=== PATIENT | male | born 1970 | race Caucasian/White ===

== ENCOUNTER 2024-12-01 22:07 | Inpatient (IN) | payer BC, SELFPAY ==
[2024-12-01] VITALS (11 sets, daily range): BP systolic 143–190; BP diastolic 84–122; BMI 30.8; BMI 31.8
[2024-12-01 13:57] LABS: ALT (SGPT) 27 U/L (0-50); AST (SGOT) 31 U/L (17-59); Albumin 5.0 g/dl (3.5-5.0); Alkaline Phosphatase 58 U/L (38-126); Blood Urea Nitrogen 13 mg/dl (9-20); Calcium 9.7 mg/dl (8.4-10.2); Carbon Dioxide 27 mmol/L (22-30); Chloride 100 mmol/L (98-107); Glucose 133 mg/dl (70-99); Lipase 111 U/L (23-300); Potassium 4.5 mmol/L (3.5-5.1); Sodium 138 mmol/L (135-145); Total Protein 8.6 g/dl (6.3-8.2); eGFR > 60.00
[2024-12-01 14:03] LABS: Hematocrit 52.0 % (39.0-52.0); Hemoglobin 17.7 g/dL (13.0-18.0); Mean Corp Hgb Conc. 34.0 g/dL (33.0-37.0); Mean Corpuscular Volume 89.0 fL (80.0-94.0); Platelet Count 246 10^3/uL (130-400); Red Cell Dist. Width 13.2 % (11.5-14.5)
[2024-12-01 14:29] LABS: Nucleated Red Blood Cells % 0 % (-)
--- NOTE | 2024-12-01 15:45 | ED.GENMED ---
History of Present Illness
General
Chief Complaint: Abdominal Pain
Source: patient
Exam Limitations: none
Time Seen by Provider: 12/01/24 15:41
Nursing documentation reviewed up to this point in time: agreed with
History of Present Illness
History of Present Illness:
Patient to ED with complaint of lower abd. pain radiating to upper abd. Symptoms started on monday and have gotten progressively worse. Denies fever/chills. No n/v. Last BM monday, normal. States he was seen at yesterday, given rx for zofran
but denies nausea. Brought self to ED today for eval.
Past History
Past History
ED Past Medical History: Hypercholesterolemia
ED Past Surgical History: None
Social History
Tobacco: Non-smoker
Alcohol: Occasional
Drug: None
Personal:
Living: with family
Employment: Employed
Family History
Family History: CAD; Negative Early CAD
Review of Systems
Review of Systems
Allergies reviewed?: Yes
All Other Systems: ROS reviewed and negative except as documented in HPI and ROS
Constitutional: Reports no symptoms
EENT: Reports no symptoms
Respiratory: Reports no symptoms
Cardiac: Reports no symptoms
ABD/GI: Reports abdominal pain (lower abdominal pain radiating to mid abd.)
: Reports no symptoms
Musculoskeletal: Reports no symptoms
Skin: Reports no symptoms
Neurological: Reports no symptoms
Psychiatric: Reports no symptoms
Phy Exam
General Physical Exam
General Presentation: well appearing and no apparent distress
General age: appears stated age
General Skin: warm and dry
General Habitus: normal
General Mental: alert
Cardiovascular Exam
Cardiovascular Exam: regular rate/rhythm and no edema
Gastrointestinal Exam
Gastrointestinal Exam: normal bowel sounds, soft, no organomegaly, no pulsatile mass, non distended and no cva tenderness
Palpation: left upper quadrant: Minimal tenderness, left lower quadrant: Moderate tenderness, right upper quadrant: Moderate tenderness and right lower quadrant: Mild tenderness
Musculoskeletal Exam
Musculoskeletal Exam: full ROM and neuro vasc intact
Skin Exam
Skin Exam: normal color, warm/dry and no rash
Psychiatric Exam
Psychiatric Exam: normal mood/affect
Course
Orders/Labs/Results
Orders:
Orders
12/01/24 Breakfast
NPO
Allow oral meds: Yes
Allow clear liquids: 4hrs prior to procedure
NPO with Ice Chips: Yes
Comment: may have unrestricted clear liquid up to 4 hrs prior to scheduled procedure
12/01/24 13:37
Complete Blood Count/With Diff Urgent
Comprehensive Metabolic Panel Urgent
Lipase Urgent
12/01/24 15:45
CT Abd/pelvis W Iv Cont Urgent
Comment:
Reason For Exam: mid to lower abd. pain
0.9% Sodium Chloride 1000 ml [Nss] 1,000 ml IV BOLUS
12/01/24 15:52
Urinalysis Reflex To Culture Urgent
Date Specimen was Collected: 12/01/24
Time Specimen was Collected: 15:47
Urine Microscopic Reflex Cult Urgent
Urine Culture Urgent
ABBI Source: U
Specimen Description:
Date Specimen was Collected: 12/01/24
Time Specimen was Collected: 15:47
12/01/24 18:48
US Abdomen Complete/Upper Urgent
Comment:
Reason For Exam: suspected cholecystitis on CT
12/01/24 21:06
Piperacillin/Tazo 3.375 Gram [Zosyn] 3.375 gram in 50 ml IV NOW
12/01/24 21:14
SURGICAL CONSULT Urgent
Consulting Provider: Armond Ahuja
Was physician already notified: Yes
12/01/24 21:15
0.9% Sodium Chloride 1000 ml [Nss] 1,000 ml IV 125 mls/hr
12/01/24 21:46
Admit/Transfer Patient As Directed
Co-Sign Provider:
Level of Care: Inpatient admission
Assign to:: Medical/Surgical
Physician / Group: Jordin
Diagnosis: Cholecystitis
Reason for Hospitalization: IV abx
Expected length of stay greater than two midnights?: Yes
ELOS- Estimated Length of Stay in days: 3
I certify the patient meets the requirements for IP care: Yes
PRN Pain Medication Management As Directed
May give lesser potent ordered pain med per pt: Yes
preference::
Protocol:: Medication orders for pain may be administered in a
manner that supports deferring to patient preference
when the pt is:
- Requesting an ordered lesser potent pain medication.
Least to most potent pain medications are defined
as: acetaminophen < NSAID < tramadol < opioids
(morphine, oxycodone, hydromorphone).
- Requesting a lesser dose of the same medication IF
ORDERED.
- Requesting a less intrusive route of administration
if both routes are prescribed by the provider (PO <
IV).
12/01/24 21:48
Code Status As Directed
Resuscitation Status: Full Code
12/01/24 23:40
0.9% Sodium Chloride 1000 ml [Nss] 1,000 ml IV 125 mls/hr
Acetaminophen [Tylenol] 650 mg PO Q4HPRN PRN
Ketorolac [Toradol] 15 mg IV Q6HPRN PRN
Morphine Sulfate 2 mg IV Q4HPRN PRN
Ondansetron Injectable [Zofran] 4 mg IV Q6HPRN PRN
Piperacillin/Tazo 3.375 Gram [Zosyn] 3.375 gram in 50 ml IV Q6H
12/01/24 23:40
Activity As Directed
Activity Level: Out of Bed-Early Mobility
With Assistance
Pneumatic Compression Sleeves As Directed
Type: Knee high
Vital Signs As Directed
Frequency: Per unit guidelines
DX Deep Vein Thrombosis Video Routine
12/02/24 06:00
Complete Blood Count/No Diff IN AM
Comprehensive Metabolic Panel IN AM
Abnormal Lab Results
12/01/24 12/01/24
13:37 15:52
WBC 15.5 H 10^3/uL
(4.8-10.8)
MPV 11.9 H fL
(7.4-10.4)
Abs Immat Gran (auto) 0.1 H 10^3/uL
(0-0.05)
Absolute Neuts (auto) 11.4 H 10^3/uL
(1.4-6.5)
Absolute Monos (auto) 1.4 H 10^3/uL
(0.1-0.6)
Immature Gran % 0.7 H %
(0-0.5)
Lymphocytes % 16.6 L %
(20.5-51.1)
Glucose 133 H mg/dl
(70-99)
Total Bilirubin 1.4 H mg/dl
(0.2-1.3)
Total Protein 8.6 H g/dl
(6.3-8.2)
Urine Ketones 3+ A
(Negative)
Ur Occult Blood Reflex 1+ A
(Negative)
Leukocyte Esterase Rfl 2+ A
(Negative)
Urine RBC 7-10 A /HPF
(0-2)
Urine WBC (Reflex) 11-15 A /HPF
(0-5)
Urine Bacteria (Reflex) Few A
(Negative)
Urine Albumin (Reflex) 2+ A
(Neg - Trace)
12/01/24 13:37
12/01/24 13:37
Vital Signs
Initial and Last Documented VS:
Initial Vital Signs
Temp Pulse Resp BP Pulse Ox
97.9 F 85 16 174/105 97
12/01/24 13:24 12/01/24 13:24 12/01/24 13:24 12/01/24 13:24 12/01/24 13:24
Last Documented Vital Signs
Temp Pulse Resp BP Pulse Ox
97.9 F 85 16 161/99 93
12/01/24 13:24 12/01/24 13:24 12/01/24 13:24 12/01/24 23:00 12/01/24 23:00
*Radiology
Radiology exam reviewed: radiology read reviewed
*Pulse Oximetry
SaO2: 98
Oxygen Mode of Delivery: Room air
Patient hypoxic: no
*Critical Care Note
Total Time (30-74mins, 75-104mins- exclusive of procedures): Not Applicable
Update Note
Update Note:
Patient to ED with complaint of abdominal pain. States it started in lower abdomen and radiates to upper abd. Symptoms started on Monday. Labs reviewed, WBC 15.5 Temp max in ED 99. Tbili 1.4, LFT's normal. CT abd/pelvis: Diffuse wall thickening
of GB with probable sludge. Muld surrounding inflammatory change. Possibel cystic duct stone measuring 1.5 cm. Highly suggestive of cholecystitis, can not r/o underlying neoplasm. Sent to US; Biliary sludge, large calculus measuring 3cm,
diffuse GB wall thickening. CBD distended, 13mm. Dr. Ahuja consulted via [employer]. Pateint to be admitted to hospitalist, Gen Surgery to consult in AM. Pancho initiated in ED> Findings discussed with patient.
ED Attending Note
-
Portions of this chart may have been created with voice recognition software.� Occasional wrong word or��sound alike� substitutions may have occurred due to the inherent limitations of voice recognition software.
Discharge Plan
Departure
Patient Disposition: Admit
Date of Disposition: 12/01/24
Time of Disposition: 21:14
Presentation/result/management discussed w/ accepting MD/DO: Hospitalist
Patient with high blood pressure during this ER visit?: No
Condition: Fair
Covid-19: Not Applicable
Discharge Problem:
Cholecystitis
Interventions
Interventions:
*Risk Screen - Suicide Last Done: 12/01/24 13:26
*General Assessment Last Done: 12/01/24 15:20
*Neglect/Abuse Screening Last Done: 12/01/24 13:26
*ED- Fall Risk Assessment Last Done: 12/01/24 15:20
*ED COVID-19 Vaccine History Last Done: 12/01/24 15:20
*Nursing Disposition Last Done: 12/01/24 23:36
QO-Dnbrul-Fsasmtscbw Assessment Last Done: 12/01/24 15:20
[2024-12-01] MEDS: NSS 1000 IV ×2 (15:51→21:20)
[2024-12-01 16:01] LABS: Urine Character Clear (Clear)
[2024-12-01] MEDS: ZOSYN 50 IV (21:16)
--- NOTE | 2024-12-01 21:50 | HPS.HSE ---
Addendum entered and electronically signed by Clarence Brenner DO 12/01/24 22:02:
Patient seen and examined independently. Agree with findings and plan as set forth by Sofia Lott PA-C.
Patient is a 54y M with no significant PMH who presents to ED complaining of RUQ abdominal pain since Monday. Patient states that he ate a cheeseburger for dinner - but also notes that he has cheeseburgers 4-5 nights per week on average
without issue. He had a similar episode several years ago which resolved on it's own. His current symptoms persisted and he presented to the ED for further evaluation. Pos intermittent nausea with one episode of non-bloody emesis. No fevers /
chills.
Ass:
Acute Calculous Cholecystitis
Plan:
Admit for further evaluation and treatment.
IV abx for now.
NPO, IVFs, pain control, etc.
Surgery consulted for cholecystectomy.
Original Note:
Family Physician
-
Family Physician: Mae Alamo MD
Chief Complaint
-
Abdominal Pain
History of Present Illness
Patient is a 54 y/o male without significant past medical history who presents with right sided abdominal pain. Patient reports pain started on Monday morning, and has gotten progressively worse. He notes he had a cheeseburger on Monday night and
afterwards the pain seemed to worsen. He reports on episode vomiting. He reports some sweats and chills, but denies any recorded fevers. He reports a similar episode of pain several years ago which resolved on it own.
Medical History
Past Medical History
Past Medical History: Reports Other
Additional Past Medical History:
Torn Meniscus
Past Surgical History: Reports None
Social History
Tobacco: Non-smoker
Alcohol: Occasional
Family History
Family History: Not pertinent
Allergies / Home Medications
Allergies reflects when Allergies were last updated in [facility].
Home Medications with original date entered in [facility]
Allergy/Medication List:
Allergies
Allergy/AdvReac Type Severity Reaction Status Date / Time
No Known Allergies Allergy Verified 05/25/21 10:35
Home Medications
meloxicam 15 mg tablet 15 mg PO DAILY 12/01/24
Review of Systems
-
A 12 point ROS was completed and negative except as noted: Yes
Constitutional: Denies Fever
Respiratory: Denies Cough or Trouble Breathing
Cardiac: Denies Chest Pain or Palpitations
Abdomen/GI: Reports See HPI
Physical Exam
Vital Signs
Vital Signs
Temp Pulse Resp BP Pulse Ox
97.9 F 85 16 143/84 98
12/01/24 13:24 12/01/24 13:24 12/01/24 13:24 12/01/24 21:00 12/01/24 21:15
Physical Exam
General: Comfortable and Conversant
HEENT: Anicteric and Moist mucous membranes
Respiratory: Clear and Non Labored Respirations
Cardiac: S1/S2 and Regular Rhythm
GI: Soft and Tender (Mild tenderness RUQ without rebound or guarding)
Rectal: Deferred by Provider
Musculoskeletal: No Clubbing, No Cyanosis and No Edema
Skin: Warm and Dry
Neuro: Awake, Alert, Oriented and Nonfocal/grossly intact
Psych: Calm
Laboratory Results
-
12/01/24 13:37
12/01/24 13:37
Laboratory Results
Total Bilirubin 1.4 mg/dl (0.2-1.3) H 12/01/24 13:37
AST 31 U/L (17-59) 12/01/24 13:37
ALT 27 U/L (0-50) 12/01/24 13:37
Alkaline Phosphatase 58 U/L (38-126) 12/01/24 13:37
Lipase 111 U/L (23-300) 12/01/24 13:37
Data Reviewed
-
CT Scan: Report Reviewed by me
Ultrasound: Report Reviewed by me
Lab Data: Labs Reviewed by me
Impression/Plan
-
Acute Cholecystitis
-Consult General Surgery
-Continue NPO for likely OR tomorrow
-Continue Zosyn
-Recheck Total Bilirubin in AM
DVT proph: SCDs
Code Status: Full Code
--- NOTE | 2024-12-01 23:40 | PTCARENOTE ---
Pt admitted from ED via stretcher. PT able to ambulate into room. pt assessed, vitals obtained, see flowsheets. Plan of care discussed. Call perez within reach. Will continue to monitor.
[2024-12-02] VITALS (13 sets, daily range): BP systolic 125–160; BP diastolic 73–100
[2024-12-02] MEDS: NSS 1000 IV ×2 (00:37→05:35)
[2024-12-02] MEDS: ZOSYN 50 IV ×4 (01:57→19:55)
--- NOTE | 2024-12-02 08:07 | CON.GS ---
Medical History
-
Chief Complaint: RUQ abdominal pain
History of Present Illness:
Patient is a 54 yo M with a PMH of obesity and torn meniscus who presents with epigastric and RUQ abdominal pain. Mr. Hui states that his symptoms began on Monday evening after having a cheeseburger. He reports severe pain which lasted
through the weekend prompting presentation to the ER yesterday evening. Associated episode of nausea and vomiting on Monday. Subjective chills, but no fevers. He denies any jaundice or pale stools, but does report darker urine. He reports a
similar episode years ago, and does admit that he may have had more mild attacks in the interim. Currently states that his pain is mildly improved, but still present.
Past Medical History
Past Medical History: Other (Obesity)
Past Surgical History: None
Social History
Tobacco: Non-Smoker
Alcohol: Occasional
Drug: None
Living: With Family
Employment: Employed
Family History
Family History: Reviewed & Noncontributory
Allergies / Home Medications
Allergy/AdvReac Type Severity Reaction Status Date / Time
No Known Allergies Allergy Verified 05/25/21 10:35
�Medication �Instructions �Recorded �Confirmed �Type
meloxicam 15 mg tablet 15 mg PO DAILY Pain 12/01/24 12/01/24 History
Review of Systems
-
A 10 point review of systems was completed, and was negative except as per HPI.
Physical Exam
Vital Signs
Temp Pulse Resp BP Pulse Ox
98.5 F 85 16 160/100 97
12/02/24 07:30 12/02/24 07:30 12/02/24 07:30 12/02/24 07:30 12/02/24 07:30
12/01/24 12/02/24 12/03/24
06:59 06:59 06:59
Actual Weight 97.636 kg
Body Mass Index (BMI) 31.8
Lab Results
WBC 15.5 10^3/uL (4.8-10.8) H 12/01/24 13:37
Hgb 17.7 g/dL (13.0-18.0) 12/01/24 13:37
Hct 52.0 % (39.0-52.0) 12/01/24 13:37
Plt Count 246 10^3/uL (130-400) 12/01/24 13:37
Abs Immat Gran (auto) 0.1 10^3/uL (0-0.05) H 12/01/24 13:37
Neutrophils % 73.3 % (42.2-75.2) 12/01/24 13:37
Physical Exam
General: Well Developed, Well Nourished and No Apparent Distress
Respiratory: Non Labored Respirations
Cardiac: Regular Rhythm
GI: Soft, Non Distended, Tender (RUQ, positive Nieves's sign), Obese and Other (No diffuse peritonitis)
Musculoskeletal: No Edema
Skin: Warm and Dry
Neuro: Nonfocal/Grossly Intact
Data Reviewed
-
CT Scan: Image Personally Visualized and interpreted and Report Reviewed by me
Ultrasound: Image Personally Visualized and interpreted and Report Reviewed by me
Labs: Labs Reviewed by me
Assessment / Plan
-
Patient is a 54 yo M p/w acute on chronic cholecystitis
The natural history and pathophysiology of biliary and stone disease was discussed. Workup thus far was reviewed. CT scan notable for a possible gallbladder mass, however, large 3 cm stone visualized with no mass on his ultrasound. US also
demonstrates possible dilation of his CBD. We discussed further workup with an MRI, however, unlikely to change clinical management and patient states that he is unlikely to tolerate. Labs notable for a elevated WBC and bilirubin likely indicative
of the severity of his cholecystitis. Options for management reviewed. Recommend and plan for cholecystectomy.
Plan for laparoscopic cholecystectomy with possible cholangiogram. The procedure itself, as well as the risks, benefits, and alternatives was discussed. Specifically, we discussed the risks of bleeding, infection, injury to surrounding structures
(bowel, bile ducts), CBD injury, need for open procedure. Typical postprocedural recovery was discussed. All questions answered. Consent signed.
-- Laparoscopic cholecystectomy with possible IOC
-- NPO, IVF
-- Antibiotics: Zosyn
--- NOTE | 2024-12-02 08:14 | W.SUR.PREOP ---
Pre-Operative Surgical Note
-
I have examined this patient prior to the performance of the scheduled procedure.
The patient's condition is unchanged from the time of the current History and
Physical and the patient is able to undergo the scheduled procedure.
[2024-12-02 09:13] LABS: Hematocrit 47.5 % (39.0-52.0); Hemoglobin 16.2 g/dL (13.0-18.0); Mean Corp Hgb Conc. 34.1 g/dL (33.0-37.0); Mean Corpuscular Volume 88.6 fL (80.0-94.0); Platelet Count 209 10^3/uL (130-400); Red Cell Dist. Width 13.2 % (11.5-14.5)
--- NOTE | 2024-12-02 09:46 | CM ---
Reviewed the chart notes and spoke with the patient at the bedside. Patient anticipates going to the OR today for lap curry. Patient resides with spouse and son in a two story home with two steps to enter. Patient reports no DME/VN/SNF in the
past. The patient confirmed his pharmacy of choice is [facility]. CM continues to be available to patient/family and is monitoring medical plan for needs at discharge.
Plan: Discharge to home when medically stable. No needs anticipated. Patient's son will provide transportation home. Spouse is currently in [place].
[2024-12-02 10:03] LABS: ALT (SGPT) 29 U/L (0-50); AST (SGOT) 37 U/L (17-59); Albumin 4.0 g/dl (3.5-5.0); Alkaline Phosphatase 61 U/L (38-126); Blood Urea Nitrogen 13 mg/dl (9-20); Calcium 8.6 mg/dl (8.4-10.2); Carbon Dioxide 23 mmol/L (22-30); Chloride 103 mmol/L (98-107); Estimated Creatinine Clearance 120 ml/min; Glucose 109 mg/dl (70-99); Potassium 4.0 mmol/L (3.5-5.1); Sodium 135 mmol/L (135-145); Total Protein 6.9 g/dl (6.3-8.2); eGFR > 60.00
--- NOTE | 2024-12-02 11:45 | W.PN.HOSP.TC ---
Addendum entered and electronically signed by Magdy Mukherjee MD 12/03/24 11:29:
LATE ADDENDUM. Pt was seen and examined on 12/02/24
General: Well Developed and No Apparent Distress
HEENT: Normocephalic, Atraumatic and Moist Mucous Membranes
Respiratory: Clear to Auscultation
Cardiac: Regular Rhythm and S1/S2; Negative Murmur, Rub or Gallop
GI: Soft, Nondistended and Normal Bowel Sounds;
Rectal: Deferred by Provider
Musculoskeletal: No Clubbing, No Cyanosis and No Edema
Skin: Negative Rash
Neuro: Awake, Alert, Oriented, AO x 3, No Motor Deficits and Nonfocal/Grossly Intact; Negative Slurred Speech or Facial Droop
Original Note:
Today's Communication/Plan
-
IV antibiotic for 24 hours or per surgery
DC Saavedra
Clear liquid diet
Pain control.
Assessment / Plan
Assessment / Plan
Acute on chronic calculus cholecystitis
Leukocytosis likely secondary to above
- Continue with IV antibiotics
- Patient eval by general surgery plan for cholecystectomy with possible IOC
- s/p lap curry. OP finding noted of Severely inflamed GB with acute on chronic inflammation - distended, thickened wall gallbladder with dark thick sludge and large stones Critical view IOC with delayed emptying but no clear stones. Duct and artery
with clips
- started on clears. ADAT per surgery.
- Pain control. Trend T. bili
Elevated blood pressure likely secondary to pain versus undiagnosed primary hypertension
-monitor post op.
-if persistently elevated will need to be started on meds.
DVT proph: SCDs/lovenox
Code Status: Full Code
Anticipated Discharge: Within 24 hours
Subjective/Interval History
-
Date of Service: December 02, 2024
seen post op
denies abd pain, nausea or vomiting
has not passed flatulence yet
Objective Data
-
Labs:
Laboratory Results
12/02/24
08:12
WBC 14.5 H
Hgb 16.2
Hct 47.5
Plt Count 209
Sodium 135
Potassium 4.0
Chloride 103
Carbon Dioxide 23
BUN 13
Creatinine 0.8
Glucose 109 H
Calcium 8.6
Total Bilirubin 1.6 H
AST 37
ALT 29
Alkaline Phosphatase 61
Vital Signs:
Vital Signs
Temp Pulse Resp BP Pulse Ox
98.5 F 85 16 160/100 97
12/02/24 07:30 12/02/24 07:30 12/02/24 07:30 12/02/24 07:30 12/02/24 07:30
--- NOTE | 2024-12-02 12:51 | W.IMMPOSTOP ---
Surgical Immed Post Op Note
-
Primary Surgeon: Sandra
Assisting Surgeon: None
Pre-op Diagnosis: Acute cholecystitis
Post-op Diagnosis: Acute on chronic cholecystitis
Procedure Performed: Laparoscopic cholecystectomy with IOC
Anesthesia Type: General
Specimen / Cultures:
1. Gallbladder
Estimated Blood Loss: 7 cc
Complications: None
Operative Findings:
1. Severely inflamed GB with acute on chronic inflammation - distended, thickened wall gallbladder with dark thick sludge and large stones
2. Critical view
3. IOC with delayed emptying but no clear stones
4. Duct and artery with clips
--- NOTE | 2024-12-02 14:41 | PTCARENOTE ---
Patient returned to his room from the PACU post laparoscopic cholecystectomy with cholangiogram.The patient is awake and alert and oriented but drowsy.The patient denies any pain.Vital signs are stable.All of the incisions are open to air without
drainage.The patient is in his bed with the call perez in reach.
[2024-12-02] MEDS: LOVENOX 40 MG SC (17:32)
--- NOTE | 2024-12-02 23:15 | PTCARENOTE ---
Received pt from previous RN, pt in bed awake able to make needs known. Denies pain or any BM at this time. Pt voiding w/o difficulty, call perez within reach.
[2024-12-03] VITALS (11 sets, daily range): BP systolic 128–157; BP diastolic 73–104
[2024-12-03] MEDS: ZOSYN 50 IV ×4 (02:10→21:38)
[2024-12-03 07:14] LABS: Hematocrit 43.1 % (39.0-52.0); Hemoglobin 14.2 g/dL (13.0-18.0); Mean Corp Hgb Conc. 32.9 g/dL (33.0-37.0); Mean Corpuscular Volume 90.9 fL (80.0-94.0); Platelet Count 195 10^3/uL (130-400); Red Cell Dist. Width 13.4 % (11.5-14.5)
[2024-12-03 07:45] LABS: ALT (SGPT) 330 U/L (0-50); AST (SGOT) 372 U/L (17-59); Albumin 3.6 g/dl (3.5-5.0); Alkaline Phosphatase 132 U/L (38-126); Blood Urea Nitrogen 12 mg/dl (9-20); Calcium 8.2 mg/dl (8.4-10.2); Carbon Dioxide 28 mmol/L (22-30); Chloride 104 mmol/L (98-107); Estimated Creatinine Clearance 96 ml/min; Glucose 124 mg/dl (70-99); Potassium 4.1 mmol/L (3.5-5.1); Sodium 139 mmol/L (135-145); Total Protein 6.2 g/dl (6.3-8.2); eGFR > 60.00
--- NOTE | 2024-12-03 08:16 | W.PN.GS2 ---
Today's Communication / Plan
-
-- GI consult
-- NPO pending plan from above
-- Abx: Zosyn, would plan on 4 days post-op abx from a surgical perspective
Assessment / Plan
-
Patient is a 54 yo M POD#1 s/p laparoscopic cholecystectomy with IOC
AVSS
Labs notable for downtrending WBC, stable Hb, normal electrolytes and renal function, increase in bilirubin, LFTs, and ALP
Possible stones or sludge visualized within the distal CBD on IOC without complete occlusion. Given his elevation in bilirubin and LFTs, this raises concern for possible choledocholithiasis. GI consulted.
-- GI consult
-- NPO pending plan from above
-- Abx: Zosyn, would plan on 4 days post-op abx from a surgical perspective
-- Pain control: Tylenol, Toradol, Oxycodone
-- DVT: Lovenox
-- DC instructions updated
Subjective Data
-
Date of Service: December 03, 2024
Major complaints. Pain well-controlled. No nausea or vomiting. No fevers or chills. Voiding. Ambulating.
Objective Data
-
Intake and Output
12/02/24 12/03/24 12/04/24
06:59 06:59 06:59
Intake Total 1180 / 1180 100 / 100
Output Total 1000 / 1000
Balance 180 / 180 100 / 100
Intake:
Oral fluids 480 / 480 100 / 100
IV fluids (Total) 600 / 600
IV piggybacks 100 / 100
Output:
Urine, [place] 500 / 500
Urine, Voided 500 / 500
Other:
Number of approximated MODERATE 1
amounts of urine
Vital Signs
Temp Pulse Resp BP Pulse Ox
98.3 F 77 18 128/73 93
12/03/24 03:27 12/03/24 03:27 12/03/24 03:27 12/03/24 03:27 12/03/24 03:27
Lab Results
12/03/24 05:52
12/03/24 05:52
Calcium 8.2 mg/dl (8.4-10.2) L 12/03/24 05:52
Total Bilirubin 3.7 mg/dl (0.2-1.3) H D 12/03/24 05:52
AST 372 U/L (17-59) H 12/03/24 05:52
ALT 330 U/L (0-50) H 12/03/24 05:52
Alkaline Phosphatase 132 U/L (38-126) H 12/03/24 05:52
Total Protein 6.2 g/dl (6.3-8.2) L 12/03/24 05:52
Albumin 3.6 g/dl (3.5-5.0) 12/03/24 05:52
Physical Exam
-
Gen: NAD
Abd: soft, minimal tenderness, ND, non-peritoneal, incisions c/d/i - no erythema, ecchymosis or drainage
Patient has a [place] catheter: No
Patient has a central line: No
--- NOTE | 2024-12-03 09:46 | CM ---
Patient seen at bedside
GI consulted
cont on IV antibiotic
PLAN: home, no needs when stable
son to transport
--- NOTE | 2024-12-03 09:47 | CON.GI ---
Consultation
-
Date/Time Consultation Requested: 12/03/24 08:07
Date/Time Consultation Performed: 12/03/24 09:10
Requesting Provider: Timo Flores MD
Performing Provider: Chacho Ventura DO (Resident); Gabriel Anderson DO
Reason for Consultation: Post-cholecystectomy elevated bilirubin/LFTs; possible choledocho on IOC
Medical History
Chief Complaint / HPI
Chief Complaint: Abdominal Pain
History of Present Illness:
Raimundo Hui is a 54M with a PMHx of obesity class I, mixed HLD, and prediabetes who presented to the ED 2 days ago with abdominal pain. Patient was in his usual state of health until 2 days prior to arrival, when after eating a cheeseburger,
started to experience pressure-like postprandial abdominal pain approximately 2 hours after his meal. Pain was located in the epigatrium and RUQ. The pain continued on into the next day when he also started to experience nausea and 1 episode of
vomiting undigested food. Patient went to urgent care who dx him with gastroenteritis and was prescribed an anti-emetic (unsure of name). He was advised to go to the ED if symptoms continued/worsened. On the day of arrival, the pain continued to
worsen and the patient began to experience diaphoresis, so he came to the emergency department. Patient notes similarity to one prior episode in the past, which was not as severe and resolved after 24 hours. During course of illness, patient
endorsed subjective chills but no fevers.
ED Course:
Afebrile, hypertensive, normal HR/RR. Moderate upper abdominal tenderness bilaterally, mild lower abdominal tenderness bilaterally. WBC 15.3, T-Bili 1.4, LFTs otherwise nml.
CT Abd/Pelv: diffuse GB wall thickening with sludge. Mild surrounding inflammatory changes, cystic duct stone approx 1.5cm
RUQUS: biliary sludge, 3cm stone, GB wall thickening, CBD 13mm.
Patient was admitted for cholecystitis. Laparoscopic cholecystectomy with IOC was performed by Dr. Flores. Severely inflamed GB with acute on chronic inflammation was resected. Dark thick sludge and large stones noted. Per Dr. Flores's assessment,
IOC showed delayed emptying but no clear stones.
Today the patient is POD#1 s/p cholecystectomy with IOC. Patient states he is feeling well with some mild residual abdominal pain that is well controlled on his current pain regimen, and is only worsened with deep breathing. Patient notes he is
passing gas, tolerated both FLD and full diet yesterday. Otherwise has no subjective complaints.
Past Medical History
Past Medical History: Other (obesity class I, mixed HLD, and prediabetes)
Past Surgical History: Other (meniscal surgery)
Social History
Tobacco: Non-Smoker
Alcohol: Occasional
Drug: None
Personal:
Living: With Family
Employment: Employed
Family History
Family History: Reviewed & Not Pertinent
Allergies / Home Medications
Allergy/AdvReac Type Severity Reaction Status Date / Time
No Known Allergies Allergy Verified 05/25/21 10:35
�Medication �Instructions �Recorded
meloxicam 15 mg tablet 15 mg PO DAILY Pain 12/01/24
oxycodone 5 mg tablet 5 mg PO Q4HPRN PRN 12/02/24
breakthrough/severe pain #15 tabs
Review of Systems
-
History Source: Patient
Constitutional: Reports No Symptoms
Respiratory: Reports No Symptoms
Cardiac: Reports No Symptoms
Abdomen/GI: Reports Abdominal Pain (mild, exacerbated only be deep breathing); Denies Nausea, Vomiting, Diarrhea or Constipated
Vital Signs
Temp Pulse Resp BP Pulse Ox
97.9 F 76 18 137/88 95
12/03/24 07:25 12/03/24 07:25 12/03/24 07:25 12/03/24 07:25 12/03/24 07:25
Physical Exam
Exam
General: Well Developed, Well Nourished, No Apparent Distress and Comfortable; Negative Fever or Chills
HEENT: Anicteric
GI: Soft, Non Distended, Normal Bowel Sounds and Other (mild tenderness to palpation in the epigastrium only; surgical incision sites c/d/i)
Skin: Warm and Dry
Results
WBC 13.0 10^3/uL (4.8-10.8) H 12/03/24 05:52
Hgb 14.2 g/dL (13.0-18.0) 12/03/24 05:52
Hct 43.1 % (39.0-52.0) 12/03/24 05:52
MCV 90.9 fL (80.0-94.0) 12/03/24 05:52
Plt Count 195 10^3/uL (130-400) 12/03/24 05:52
Absolute Neuts (auto) 11.4 10^3/uL (1.4-6.5) H 12/01/24 13:37
Sodium 139 mmol/L (135-145) 12/03/24 05:52
Potassium 4.1 mmol/L (3.5-5.1) 12/03/24 05:52
Chloride 104 mmol/L (98-107) 12/03/24 05:52
Carbon Dioxide 28 mmol/L (22-30) 12/03/24 05:52
BUN 12 mg/dl (9-20) 12/03/24 05:52
Creatinine 1.0 mg/dL (0.7-1.3) 12/03/24 05:52
Calcium 8.2 mg/dl (8.4-10.2) L 12/03/24 05:52
Total Bilirubin 3.7 mg/dl (0.2-1.3) H D 12/03/24 05:52
AST 372 U/L (17-59) H 12/03/24 05:52
ALT 330 U/L (0-50) H 12/03/24 05:52
Alkaline Phosphatase 132 U/L (38-126) H 12/03/24 05:52
Lipase 111 U/L (23-300) 07/27/25 13:37
Diagnostic Image Results:
CT abd/pel (12/01): 1. Findings highly suggestive of acute cholecystitis with probable cystic duct stone. Cannot rule out underlying gallbladder neoplasm.
US Abdomen (12/01): Biliary sludge. Large calculus measuring approximately 3 cm. Diffuse gallbladder wall thickening. Negative sonographic Nieves's sign, though pain medication status is unknown. The overall sonographic appearance could suggest
either acute or chronic cholecystitis. Clinical correlation necessary. Distended common bile duct, 13 mm.
IOC (12/02): Intraoperative spot views were submitted, demonstrating cannulation of the cystic duct. No filling defects are seen within the common bile duct, and contrast passes rapidly into the duodenum.(Per IR)
Prior GI Procedures: None.
EGD: None.
Colonoscopy: None.
Assessment / Plan
-
Raimundo Hui is a 54M with a PMHx of obesity class I, mixed HLD, and prediabetes who presented to the ED 2 days ago with postprandial abdominal pain. In the ED, patient exhibited leukocytosis with RUQUS/CT showing signs of acute cholecystitis,
cystic duct stone, moderate CBD dilatation, biliary sludge, and gallstones. Total bilirubin was 1.4. Patient was admitted for cholecystectomy with Dr. Flores and started on a pain regimen and Zosyn. GB resected on 12/02 with IOC with concern for
delayed emptying. On the day of our consultation, patient is without subjective complaints, but increasing bilirubin, LFTs and ALP.
#Acute Cholecystitis
- POD#1 s/p lap curry with IOC
- NPO
- Continue Zosyn and pain control per primary and GS
- Plan for EUS today, ERCP pending results
- Continue to trend LFTs.
-
-
Thank you for consultation and allowing me to participate in the patient's care. Please call the independent marketing consultant GI physician during the after hours with any questions or concerns.
--- NOTE | 2024-12-03 11:24 | W.PN.HOSP.TC ---
Today's Communication/Plan
-
GI input
EUS and ERCP?
Continue with antibiotic
Start IV fluids
Pain control
Assessment / Plan
Assessment / Plan
Acute on chronic calculus cholecystitis
Leukocytosis likely secondary to above
- Continue with IV antibiotics
- Patient eval by general surgery plan for cholecystectomy with possible IOC
- s/p lap curry. OP finding noted of Severely inflamed GB with acute on chronic inflammation - distended, thickened wall gallbladder with dark thick sludge and large stones Critical view IOC with delayed emptying but no clear stones. Duct and artery
with clips
- Diet downgraded to n.p.o. Diet per GI and surgery
- Pain control. Trend T. bili
Transaminitis
- Significant bump in LFTs noted.
- Biliary sludge was noted in IOC per surgery
- GI consulted-May require EUS/ERCP
Elevated blood pressure likely secondary to pain versus undiagnosed primary hypertension
-monitor post op.
-if persistently elevated will need to be started on meds.
DVT proph: SCDs/lovenox
Code Status: Full Code
Anticipated Discharge: > 48 hours
Subjective/Interval History
-
Date of Service: December 03, 2024
States passing flatulence
Denies any nausea vomiting
Objective Data
-
Labs:
Laboratory Results
12/03/24
05:52
WBC 13.0 H
Hgb 14.2
Hct 43.1
Plt Count 195
Sodium 139
Potassium 4.1
Chloride 104
Carbon Dioxide 28
BUN 12
Creatinine 1.0
Glucose 124 H
Calcium 8.2 L
Total Bilirubin 3.7 H D
AST 372 H
ALT 330 H
Alkaline Phosphatase 132 H
Vital Signs:
Vital Signs
Temp Pulse Resp BP Pulse Ox
97.9 F 76 18 137/88 95
12/03/24 07:25 12/03/24 07:25 12/03/24 07:25 12/03/24 07:25 12/03/24 07:25
I&O
12/02/24 12/03/24 12/04/24
06:59 06:59 06:59
Intake Total 1180 / 1180 100 / 100
Output Total 1000 / 1000
Balance 180 / 180 100 / 100
Physical Exam
-
General: Well Developed and No Apparent Distress
HEENT: Normocephalic, Atraumatic and Moist Mucous Membranes
Respiratory: Clear to Auscultation
Cardiac: Regular Rhythm and S1/S2; Negative Murmur, Rub or Gallop
GI: Soft, Nondistended and Normal Bowel Sounds; Negative Organomegaly
Rectal: Deferred by Provider
Musculoskeletal: No Clubbing, No Cyanosis and No Edema
Skin: Negative Rash
Neuro: Awake, Alert, Oriented, AO x 3, No Motor Deficits and Nonfocal/Grossly Intact; Negative Slurred Speech or Facial Droop
[2024-12-03] MEDS: NSS 1000 IV (12:40)
[2024-12-03] MEDS: LOVENOX 40 MG SC (17:32)
--- NOTE | 2024-12-04 00:37 | TRANSFER ---
1905: Report given to GI lab - [facility]. Pt transported to GI lab for ERCP.
Report received from [facility]DL[facility] Ann - pt s/p ERCP w cholangiogram. Received back in room at 2136. pt was able to walk from stretcher to bed without incident. Pt reported no pain or discomfort.
[2024-12-04] MEDS: NSS IV (01:00)
[2024-12-04] MEDS: ZOSYN 50 IV ×4 (02:46→19:47)
[2024-12-04 02:59] VITALS: BP 152/92
[2024-12-04] MEDS: NSS 1000 IV (04:58)
--- NOTE | 2024-12-04 05:56 | W.PN.GI.CBS2 ---
Today's Communication / Plan
-
F/u repeat labs this AM. As long as patient tolerating diet and LFTs down-trending, reasonable to d/c from GI standpoint with close outpatient follow-up. Would continue PPI BiD for 8 weeks given duodenal ulcers. See rest of care as outlined below.
GI will sign-off, please re-contact with any questions or concerns.
Assessment / Plan
-
#Choledocholithiasis
#Acute on Chronic Calculous Cholecystitis (s/p CCY)
#Duodenal Ulcers
Mr. Hui is a pleasant 54 y.o male with past medical history as outlined below who initially presented on 12/01/24 with RUQ abdominal pain and found to have acute on chronic calculous cholecystitis. General surgery was consulted and patient
underwent a lap curry with IOC on 12/02/24 without any complications. IOC was also performed with delayed emptying but without any obvious stones or filling defects. However, today his LFTs acutely elsi with AST 37 -> 372, ALT 29 -> 330, ALP 61 ->
132, and T Bili 1.6 -> 3.7. Personally reviewed IOC and without any filling defects or stones. However, given his acute rise in LFTs concern for potential retained sludge and/or tiny stone. Clinically, he is without any abdominal pain aside from
mild discomfort from his recent incisions. Given his (-) IOC, favor pursuing EUS with +/- ERCP for further evaluation.
S/p EUS/ERCP 12/03/24- Impression: Two stones visualized in the CBD, hyperechoic strands and foci were noted in the pancreatic head, non-bleeding duodenal ulcers, dilated CBD secondary to choledocholithiasis, managed with biliary sphincterotomy and
balloon dilation along with balloon extraction with a few stones removed, balloon occlusion cholangiogram without further filling defects
Recommendations:
- Tolerating CLD, may ADAT to low-fat diet as tolerated
- F/u repeat labs this AM
- Continue empiric abx given cholecystitis
- PPI 40 mg BiD for 8 weeks given duodenal ulcers, no plans for a repeat EGD
- Pain control and IV anti-emetics PRN
- As long as patient is able to tolerate a diet and down-trending LFTs, reasonable to d/c later this afternoon from GI standpoint
- Have sent a message to our office to coordinate f/u as well on 12/19/24
- General surgery following, appreciate recs
- Avoidance of all NSAIDs
- Rest of care as per primary team
Discussed with primary internal medicine team. GI will sign-off, please re-contact with any questions or concerns.
Subjective
Subjective
Date of Service: December 04, 2024
- S/p EUS/ERCP 12/03/24- Impression: Two stones visualized in the CBD, hyperechoic strands and foci were noted in the pancreatic head, non-bleeding duodenal ulcers, dilated CBD secondary to choledocholithiasis, managed with biliary sphincterotomy and
balloon dilation along with balloon extraction with a few stones removed, balloon occlusion cholangiogram without further filling defects
- Otherwise, no acute events overnight. Pending repeat AM labs
Feeling well, denies any abdominal pain or discomfort or other nausea/vomiting after his procedures. Tolerated clears without any difficulty. Hoping to go home later today. Otherwise, no fevers, chills or other constitutional symptoms.
Objective
Data Reviewed
Laboratory Data:
Laboratory Results
12/03/24 05:52
12/03/24 05:52
Laboratory Results
Total Bilirubin 3.7 mg/dl (0.2-1.3) H D 12/03/24 05:52
AST 372 U/L (17-59) H 12/03/24 05:52
ALT 330 U/L (0-50) H 12/03/24 05:52
Alkaline Phosphatase 132 U/L (38-126) H 12/03/24 05:52
Lipase 111 U/L (23-300) 12/01/24 13:37
Vital Signs and I&O:
Vital Signs
Temp Pulse Resp BP Pulse Ox
98.7 F 64 16 152/92 92
12/04/24 02:59 12/04/24 02:59 12/04/24 02:59 12/04/24 02:59 12/04/24 02:59
I&O
12/02/24 12/03/24 12/04/24
06:59 06:59 06:59
Intake Total 1180 / 1180 1010 / 1010
Output Total 1000 / 1000
Balance 180 / 180 1010 / 1010
Physical Exam
Physical Exam
HEENT: Anicteric and Moist mucous membranes
Pulmonary: Other (Normal WOB on room air)
GI: Soft, Non Distended and Tender (Mild tenderness near incisions)
Extremities: No Edema
Neuro: Non Focal
[2024-12-04 07:15] VITALS: BP 139/84
[2024-12-04] MEDS: PROTONIX 40 MG PO ×2 (09:04→19:47)
[2024-12-04 09:13] LABS: Hematocrit 43.0 % (39.0-52.0); Hemoglobin 14.4 g/dL (13.0-18.0); Mean Corp Hgb Conc. 33.5 g/dL (33.0-37.0); Mean Corpuscular Volume 90.1 fL (80.0-94.0); Nucleated Red Blood Cells % 0 % (-); Platelet Count 223 10^3/uL (130-400); Red Cell Dist. Width 13.5 % (11.5-14.5)
[2024-12-04 09:57] LABS: ALT (SGPT) 354 U/L (0-50); AST (SGOT) 307 U/L (17-59); Albumin 3.5 g/dl (3.5-5.0); Alkaline Phosphatase 142 U/L (38-126); Blood Urea Nitrogen 17 mg/dl (9-20); Calcium 8.0 mg/dl (8.4-10.2); Carbon Dioxide 25 mmol/L (22-30); Chloride 106 mmol/L (98-107); Estimated Creatinine Clearance 96 ml/min; Glucose 126 mg/dl (70-99); Potassium 3.7 mmol/L (3.5-5.1); Sodium 141 mmol/L (135-145); Total Protein 6.1 g/dl (6.3-8.2); eGFR > 60.00
--- NOTE | 2024-12-04 11:23 | W.PN.HOSP.TC ---
Today's Communication/Plan
-
DC fluid
Diet advanced
Repeat CMP
with plan for discharge tentatively later today
Assessment / Plan
Assessment / Plan
Acute on chronic calculus cholecystitis
Leukocytosis likely secondary to above
- Continue with IV antibiotics and recommending antibiotics for 4 days post op per surgery.
- Patient eval by general surgery plan for cholecystectomy with possible IOC
- s/p lap curry. OP finding noted of Severely inflamed GB with acute on chronic inflammation - distended, thickened wall gallbladder with dark thick sludge and large stones Critical view IOC with delayed emptying but no clear stones. Duct and artery
with clips
- Diet advanced.
- Pain control. Trend T. bili
Transaminitis
- Significant bump in LFTs noted.
- Biliary sludge was noted in IOC per surgery
- Status post EUS and ERCP
- Mild bump in T. bili noted. Discussed with GI recommending repeat CMP later today.
- Diet advance to monitor for tolerance
Elevated blood pressure likely secondary to pain
- Recommend outpatient follow-up
DVT proph: SCDs/lovenox
Code Status: Full Code
Discussed with gastroenterology
Anticipated Discharge: Within 24 hours
Subjective/Interval History
-
Date of Service: December 04, 2024
States had a bowel movement earlier today
Denies any abdominal significant pain
Objective Data
-
Labs:
Laboratory Results
12/04/24 12/04/24
08:45 14:00
WBC 7.4
Hgb 14.4
Hct 43.0
Plt Count 223
Sodium 141 Pending
Potassium 3.7 Pending
Chloride 106 Pending
Carbon Dioxide 25 Pending
BUN 17 Pending
Creatinine 1.0 Pending
Glucose 126 H Pending
Calcium 8.0 L Pending
Total Bilirubin 4.6 H Pending
AST 307 H Pending
ALT 354 H Pending
Alkaline Phosphatase 142 H Pending
Vital Signs:
Vital Signs
Temp Pulse Resp BP Pulse Ox
99.1 F 78 18 139/84 95
12/04/24 07:15 12/04/24 07:15 12/04/24 07:15 12/04/24 07:15 12/04/24 07:15
I&O
12/03/24 12/04/24 12/05/24
06:59 06:59 06:59
Intake Total 1180 / 1180 1110 / 1110
Output Total 1000 / 1000
Balance 180 / 180 1110 / 1110
Physical Exam
-
General: Well Developed and No Apparent Distress
HEENT: Normocephalic, Atraumatic and Moist Mucous Membranes
Respiratory: Clear to Auscultation
Cardiac: Regular Rhythm and S1/S2; Negative Murmur, Rub or Gallop
GI: Soft, Nontender, Nondistended and Normal Bowel Sounds; Negative Organomegaly
Rectal: Deferred by Provider
Musculoskeletal: No Clubbing, No Cyanosis and No Edema
Skin: Negative Rash
Neuro: Awake, Alert, Oriented, AO x 3, No Motor Deficits and Nonfocal/Grossly Intact; Negative Slurred Speech or Facial Droop
Psych: Calm
[2024-12-04 11:30] VITALS: BP 160/90
--- NOTE | 2024-12-04 14:40 | CM ---
POD#2 Lap Vivienne, ERCP/Cholangiogram today, IV/AB. Discharge POC: Home with no needs.
[2024-12-04 14:57] LABS: ALT (SGPT) 409 U/L (0-50); AST (SGOT) 315 U/L (17-59); Albumin 4.1 g/dl (3.5-5.0); Alkaline Phosphatase 153 U/L (38-126); Blood Urea Nitrogen 16 mg/dl (9-20); Calcium 8.7 mg/dl (8.4-10.2); Carbon Dioxide 27 mmol/L (22-30); Chloride 107 mmol/L (98-107); Estimated Creatinine Clearance 96 ml/min; Glucose 114 mg/dl (70-99); Potassium 3.6 mmol/L (3.5-5.1); Sodium 143 mmol/L (135-145); Total Protein 7.2 g/dl (6.3-8.2); eGFR > 60.00
[2024-12-04 15:40] VITALS: BP 152/91
[2024-12-04] MEDS: LOVENOX 40 MG SC (17:53)
[2024-12-04 19:00] VITALS: BP 152/93
[2024-12-04 23:00] VITALS: BP 144/83
[2024-12-05] MEDS: ZOSYN 50 IV ×2 (02:33→08:47)
--- NOTE | 2024-12-05 05:27 | W.PN.GI.CBS2 ---
Today's Communication / Plan
-
Being discharged this AM, have sent message to our office for outpatient f/u on 12/19. Should have repeat labs in 1-2 weeks as outpatient. GI will sign-off, please recontact with any questions or concerns. Rest of care as outlined below.
Assessment / Plan
-
#Choledocholithiasis
#Acute on Chronic Calculous Cholecystitis (s/p CCY)
#Duodenal Ulcers
Mr. Hui is a pleasant 54 y.o male with past medical history as outlined below who initially presented on 12/01/24 with RUQ abdominal pain and found to have acute on chronic calculous cholecystitis. General surgery was consulted and patient
underwent a lap curry with IOC on 12/02/24 without any complications. IOC was also performed with delayed emptying but without any obvious stones or filling defects. However, today his LFTs acutely elsi with AST 37 -> 372, ALT 29 -> 330, ALP 61 ->
132, and T Bili 1.6 -> 3.7. Personally reviewed IOC and without any filling defects or stones. However, given his acute rise in LFTs concern for potential retained sludge and/or tiny stone. Clinically, he is without any abdominal pain aside from
mild discomfort from his recent incisions. Given his (-) IOC, favor pursuing EUS with +/- ERCP for further evaluation.
S/p EUS/ERCP 12/03/24- Impression: Two stones visualized in the CBD, hyperechoic strands and foci were noted in the pancreatic head, non-bleeding duodenal ulcers, dilated CBD secondary to choledocholithiasis, managed with biliary sphincterotomy and
balloon dilation along with balloon extraction with a few stones removed, balloon occlusion cholangiogram without further filling defects
Slight bump in LFTs and related to contrast injection from ERCP without any abdominal pain or other concerning symptoms.
Recommendations:
- Low-fat diet as tolerated
- Recommend repeat LFTs in 1-2 weeks as outpatient
- Continue empiric abx given cholecystitis
- PPI 40 mg BiD for 8 weeks given duodenal ulcers, no plans for a repeat EGD
- Pain control and IV anti-emetics PRN
- Okay to discharge from GI standpoint given down-trending LFTs
- Have sent a message to our office to coordinate f/u as well on 12/19/24
- General surgery following, appreciate recs
- Avoidance of all NSAIDs
- Rest of care as per primary team
Discussed with primary internal medicine team. GI will sign-off as patient is being discharged, please re-contact with any questions or concerns.
Subjective
Subjective
Date of Service: December 05, 2024
- Rise in LFTs on 12/04, otherwise without any abdominal pain/discomfort
- No acute events overnight
Feeling well, resting comfortably without any abdominal pain or nausea/vomiting. Hoping to go home.
Objective
Data Reviewed
Laboratory Data:
Laboratory Results
12/04/24 08:45
Laboratory Results
Total Bilirubin 5.5 mg/dl (0.2-1.3) H 12/04/24 14:36
AST 315 U/L (17-59) H 12/04/24 14:36
ALT 409 U/L (0-50) H 12/04/24 14:36
Alkaline Phosphatase 153 U/L (38-126) H 12/04/24 14:36
Lipase 111 U/L (23-300) 12/01/24 13:37
Vital Signs and I&O:
Vital Signs
Temp Pulse Resp BP Pulse Ox
98.8 F 70 16 144/83 95
12/04/24 23:00 12/04/24 23:00 12/04/24 23:00 12/04/24 23:00 12/04/24 23:00
I&O
12/03/24 12/04/24 12/05/24
06:59 06:59 06:59
Intake Total 1180 / 1180 1110 / 1110 1060 / 1060
Output Total 1000 / 1000
Balance 180 / 180 1110 / 1110 1060 / 1060
Physical Exam
Physical Exam
HEENT: Anicteric and Moist mucous membranes
Pulmonary: Other (Normal WOB on room air)
GI: Soft, Non Distended and Non Tender
Extremities: No Edema
Neuro: Non Focal
[2024-12-05 07:20] VITALS: BP 148/86
[2024-12-05 08:19] LABS: ALT (SGPT) 348 U/L (0-50); AST (SGOT) 250 U/L (17-59); Albumin 3.3 g/dl (3.5-5.0); Alkaline Phosphatase 126 U/L (38-126); Blood Urea Nitrogen 14 mg/dl (9-20); Calcium 8.2 mg/dl (8.4-10.2); Carbon Dioxide 27 mmol/L (22-30); Chloride 109 mmol/L (98-107); Estimated Creatinine Clearance 87 ml/min; Glucose 108 mg/dl (70-99); Potassium 3.8 mmol/L (3.5-5.1); Sodium 142 mmol/L (135-145); Total Protein 6.0 g/dl (6.3-8.2); eGFR > 60.00
[2024-12-05] MEDS: PROTONIX 40 MG PO (08:47)
--- NOTE | 2024-12-05 09:10 | W.PN.GS2 ---
Today's Communication / Plan
-
dispo planning
Assessment / Plan
-
Patient is a 54 yo M with acute on chronic cholecystitis with choledocholithiasis POD#3 s/p laparoscopic cholecystectomy with IOC PPD#1 ERCP with balloon dilation and biliary sphincterotomy for choledocholithiasis. Duodenal ulcers noted.
AVSS
No leukocytosis
LFT's trending back down
-- Analgesics prn, no NSAIDs
-- Continue low fat diet
-- PPI as per GI
-- Abx: Zosyn, would plan on 4 days post-op abx from a surgical perspective. Ok to transition to PO Augmentin to complete 4 day course upon d/c
-- Pain control: Tylenol, Oxycodone
-- DVT: Lovenox
-- Ok for d/c from surgical standpoint
Subjective Data
-
Date of Service: December 05, 2024
Pt seen and examined at bedside. Denies n/v. Tolerating diet. Passing nonbloody loose stools. Denies pain.
Objective Data
-
Intake and Output
12/04/24 12/05/24 12/06/24
06:59 06:59 06:59
Intake Total 1110 / 1110 1060 / 1060
Balance 1110 / 1110 1060 / 1060
Intake:
Oral fluids 100 / 100 860 / 860
IV fluids (Total) 810 / 810 100 / 100
nss 50 / 50
IV piggybacks 200 / 200 100 / 100
Other:
Number of approximated MODERATE 1 1
amounts of urine
Vital Signs
Temp Pulse Resp BP Pulse Ox
98.1 F 60 16 148/86 98
12/05/24 07:20 12/05/24 07:20 12/05/24 07:20 12/05/24 07:20 12/05/24 07:20
Lab Results
12/04/24 08:45
12/05/24 05:59
Calcium 8.2 mg/dl (8.4-10.2) L 12/05/24 05:59
Total Bilirubin 4.1 mg/dl (0.2-1.3) H 12/05/24 05:59
AST 250 U/L (17-59) H 12/05/24 05:59
ALT 348 U/L (0-50) H 12/05/24 05:59
Alkaline Phosphatase 126 U/L (38-126) 12/05/24 05:59
Total Protein 6.0 g/dl (6.3-8.2) L 12/05/24 05:59
Albumin 3.3 g/dl (3.5-5.0) L 12/05/24 05:59
Physical Exam
-
Gen: NAD
Abd: soft, NT, ND, non-peritoneal, incisions c/d/i - no erythema, ecchymosis or drainage
Patient has a [place] catheter: No
Patient has a central line: No
--- NOTE | 2024-12-05 09:34 | W.PN.HOSP.TC ---
Today's Communication/Plan
-
dc home
po abx
Assessment / Plan
Assessment / Plan
Acute on chronic calculus cholecystitis
Leukocytosis likely secondary to above
- Continue with IV antibiotics and recommending antibiotics for 4 days post op per surgery.
- Patient eval by general surgery plan for cholecystectomy with possible IOC
- s/p lap curry. OP finding noted of Severely inflamed GB with acute on chronic inflammation - distended, thickened wall gallbladder with dark thick sludge and large stones Critical view IOC with delayed emptying but no clear stones. Duct and artery
with clips
- Diet advanced.
- Pain control. Trend T. bili
Transaminitis
- Significant bump in LFTs noted.
- Biliary sludge was noted in IOC per surgery
- Status post EUS and ERCP
- T.bili and AST/ALT downtrended.
- Diet advance to monitor for tolerance
Elevated blood pressure likely secondary to pain
- Recommend outpatient follow-up
DVT proph: SCDs/lovenox
Code Status: Full Code
More than 30 minutes spent in discharge including
Final examination of the patient
Summarizing hospital stay
Instructions for continuing care to all relevant caregivers
Preparation of discharge records, prescriptions, and referral forms
Total time spent (in minutes): 52
Anticipated Discharge: Today
Subjective/Interval History
-
Date of Service: December 05, 2024
tolerating diet
no nausea or vomiting
Objective Data
-
Labs:
Laboratory Results
12/05/24
05:59
Sodium 142
Potassium 3.8
Chloride 109 H
Carbon Dioxide 27
BUN 14
Creatinine 1.1
Glucose 108 H
Calcium 8.2 L
Total Bilirubin 4.1 H
AST 250 H
ALT 348 H
Alkaline Phosphatase 126
Vital Signs:
Vital Signs
Temp Pulse Resp BP Pulse Ox
98.1 F 60 16 148/86 98
12/05/24 07:20 12/05/24 07:20 12/05/24 07:20 12/05/24 07:20 12/05/24 07:20
I&O
12/04/24 12/05/24 12/06/24
06:59 06:59 06:59
Intake Total 1110 / 1110 1060 / 1060
Balance 1110 / 1110 1060 / 1060
Physical Exam
-
General: Well Developed and No Apparent Distress
HEENT: Normocephalic, Atraumatic and Moist Mucous Membranes
Respiratory: Clear to Auscultation
Cardiac: Regular Rhythm and S1/S2; Negative Murmur, Rub or Gallop
GI: Soft, Nontender, Nondistended and Normal Bowel Sounds; Negative Organomegaly
Rectal: Deferred by Provider
Musculoskeletal: No Clubbing, No Cyanosis and No Edema
Skin: Negative Rash
Neuro: Awake, Alert, Oriented, AO x 3, No Motor Deficits and Nonfocal/Grossly Intact; Negative Slurred Speech or Facial Droop
Psych: Calm
--- NOTE | 2024-12-05 09:35 | W.DCSUMMARY ---
Discharge Summary
Discharge Data
Date of Admission: 12/01/24
Date of Discharge: 12/05/24
-
Pending Results: No
Hospital Course
54-year-old male past medical history of primary hypertension working with PCP in regards for control without medication who is presenting with abdominal pain. Patient was found to be acute on chronic calculus cholecystitis. Patient was eval by GI
and general surgery. Patient was started on broad-spectrum antibiotics. Patient s/p lap curry. OP finding noted of Severely inflamed GB with acute on chronic inflammation - distended, thickened wall gallbladder with dark thick sludge and large
stones Critical view IOC with delayed emptying but no clear stones. Duct and artery with clips. Patient with bump in transaminitis and gastroenterology evaluated the patient. Patient underwent EUS and ERCP. Patient was found to have duodenal
ulcer. Status post procedure patient transaminitis improved. Patient was tolerating diet. Patient be discharged on p.o. antibiotics. Patient was also started on PPI. Patient was recommended to consider being started on antihypertension
medication. States he has been working with his primary doctor in regards for it with diet and exercise. Highly recommended patient to be started on medication which patient stable discussed with primary doctor did not want to get started on
medication currently during this hospitalization. Patient was tolerating diet and improvement in transaminitis to be discharged home with outpatient follow-up.
Discharge Plan
-
Patient Disposition: Home (Routine Discharge)
Discharge Diagnosis/Procedures: Acute cholecystitis s/p laparoscopic cholecystectomy with cholangiogram
Transaminitis status post EUS and ERCP
Duodenal ulcer
Elevated blood pressure
Condition: Good
Diet: Regular and Low Fat
Additional Diets: If issues with bloating or diarrhea follow a low-fat diet
Activity: No strenuous activity
Additional Activity: No heavy lifting (>20 lbs) or strenuous activities for 3 weeks postoperatively
Driving Restrictions: No driving if too sore or taking narcotics
Bathing Restrictions: OK to Shower
Blood Work: CMP in 5 to 7 days via primary doctor
Wound Care: Keep incisions clean and dry. Glue will flake off in 2 to 3 weeks. Stitches will dissolve. Use ice to the abdomen to reduce any bruising or swelling.
Activity Restrictions/Additional Instructions:
Call for fevers (>100.5), nausea or vomiting, worsening abdominal pain, yellowing of the eyes or skin
Avoidance of all NSAIDs
Would continue pantoprazole 40mg BiD for 8 weeks given duodenal ulcers.
Referrals:
Timo Flores MD [Active, Surgical] - in two to four weeks
Gabriel Anderson DO [Active, Gastroenterology]
Referral Note: Plan to confirm follow-up appointment timing.
Mae Alamo MD [Family Provider, [facility]] - in less than 1 week
Referral Note: follow up for elevated blood pressure.
Prescriptions:
New
acetaminophen 325 mg tablet
650 mg PO Q4HPRN PRN (Reason: mild pain) Qty: 1 0RF
oxycodone 5 mg tablet
5 mg PO Q4HPRN PRN (Reason: breakthrough/severe pain) Qty: 15 0RF
pantoprazole 40 mg Tablet,Delayed Release (Dr/Ec)
40 mg PO BID Qty: 60 0RF
amoxicillin-pot clavulanate 875-125 mg tablet
1 tab PO BID Qty: 5 0RF
Discontinued
meloxicam 15 mg tablet
15 mg PO DAILY
Discharge Orders:
Discharge Patient (As Directed); Ordered 12/05/24
Ordered By: Magdy Mukherjee
Discharge Date and Time
Discharge Date/Time: 12/05/24 10:04
Print Language: IRANIAN
--- NOTE | 2024-12-05 10:09 | CM ---
CM following re: discharge planning.
Reviewed pt's chart, met with pt.
Pt is POD#3 s/p laparoscopic cholecystectomy with IOC PPD#1 ERCP with balloon dilation and biliary sphincterotomy for choledocholithiasis.
Discharge order noted. Pt is aware, expressed his agreement and he stated his spouse will transport.
No after care VN services indicated.
D/C plan: home no needs. Spouse to transport.
== END 2024-12-05 10:04 | disposition home or self-care (01) | DRG 419 ==
LOC: 2 SOUTH 22:07
PROVIDERS: Emergency Medicine; Internal Medicine Gastroenterology; Nurse Practitioner; Physician Assistant Medical; ADMITTING PHYSICIAN Hospitalist; ATTENDING PHYSICIAN Hospitalist; CONSULT PHYSICIAN Student in an Organized Health Care Education/Training Program; EMERGENCY PHYSICIAN Emergency Medicine; FAMILY PHYSICIAN Family Medicine; OTHER PHYSICIAN Surgery
PROC: BF101ZZ Fluoroscopy of Bile Ducts using Low Osmolar Contrast (ICD-10-PCS; 2024-12-02)
PROC: 0FT44ZZ Resection of Gallbladder, Percutaneous Endoscopic Approach (ICD-10-PCS; 2024-12-02)
PROC: BD41ZZZ Ultrasonography of Esophagus (ICD-10-PCS; 2024-12-03)
PROC: 0FC98ZZ Extirpation of Matter from Common Bile Duct, Via Natural or Artificial Opening Endoscopic (ICD-10-PCS; 2024-12-03)
DX: K80.66 Calculus of gallbladder and bile duct with acute and chronic cholecystitis without obstruction (principal); K26.9 Duodenal ulcer, unspecified as acute or chronic, without hemorrhage or perforation; I10 Essential (primary) hypertension; E66.811 Obesity, class 1; E78.2 Mixed hyperlipidemia; Z68.31 Body mass index [BMI] 31.0-31.9, adult; Z79.899 Other long term (current) drug therapy; K76.0 Fatty (change of) liver, not elsewhere classified; K66.0 Peritoneal adhesions (postprocedural) (postinfection)
CPT/HCPCS: 74177; 74300; 74330; 76000; 76700; 80053; 81003; 81015; 83690; 85025; 85027; 87086; 88304; 96361; 96365; 99285; A4300; C1726; C1769; Q9967